=== PATIENT | female | born 1950 | race Caucasian/White ===

== ENCOUNTER → 2018-08-01 | Outpatient (CLI) | payer MEDICARE, OTHER ==
[~2018-08-01] MED LIST: ASPIRIN81 M2 PO; B-COMPLEX WITH1 EAC2 PO; CARAFATE 1 GM TA1 G1 GT; CYMBALTA30 MG PO; CYMBALTA60 MG PO; FLEXERIL PO; HYDROCODON-ACE1 EACH PO; HYDROCODONE-AP1 EAC6 PO; MELATONIN3 MG PO; NORCO 5-325 TA1 EACH PO; OMEPRAZOLE40 MG PO; PROBIOTIC1 EAC1 PO; PROZAC20 MG PO; REGLAN 10 MG TA10 MG PO; UNICOMPLEX M TA1 TA1 PO; VITAMIN D3400 UNI2 PO; ZOFRAN ODT4 MG PO
== END ==
LOC: M.RAD 14:22
DX: M85.89 Other specified disorders of bone density and structure, multiple sites (principal); M81.0 Age-related osteoporosis without current pathological fracture

== ENCOUNTER → 2020-04-04 | Outpatient (CLI) | payer MEDICARE, OTHER | LOC: M.NUC 10:01 | PROVIDERS: ATTEND Orthopaedic Surgery | DX: S83.232A Complex tear of medial meniscus, current injury, left knee, initial encounter (principal); M17.0 Bilateral primary osteoarthritis of knee; X58.XXXA Exposure to other specified factors, initial encounter; Y92.89 Other specified places as the place of occurrence of the external cause; Y93.89 Activity, other specified; Y99.8 Other external cause status ==

== ENCOUNTER 2020-06-28 09:59 | Emergency (ER) | payer MEDICARE, OTHER ==
[~2020-06-28] VITALS: Ht 160 cm; Wt 101.6 kg
[2020-06-28] MEDS ORDERED: ZOFRAN4 MG PO (10:09)
[2020-06-28] MEDS ORDERED: FAMOTIDINE 40 M40 M1 PO (10:09)
[2020-06-28] MEDS ORDERED: DEXTROAMPHETAMIN5 M2 PO (10:09)
[2020-06-28] MEDS ORDERED: ALPRAZOLAM XR3 MG PO (10:10)
[2020-06-28] MEDS ORDERED: BACTRIM DS TAB1 EAC1 PO (10:10)
[2020-06-28 10:38] LABS: ABSOLUTE EOSINOPHILS 0.2 thou/uL (0.0-0.7); ABSOLUTE LYMPHOCYTES 0.9 thou/uL (0.8-5.3); ABSOLUTE MONOCYTES 0.3 thou/uL (0.0-1.2); ABSOLUTE NEUTROPHILS 3.7 thou/uL (1.6-8.1); BASOPHILS 0.6 %; EOSINOPHILS 4.4 %; HEMATOCRIT 40.1 % (37.0-47.0); HEMOGLOBIN 13.4 gm/dL (12.0-15.0); LYMPHOCYTES 17.9 %; MCH 29.6 pg (26.0-34.0); MCHC 33.4 g/dL (28.0-37.0); MCV 88.7 fL (80.0-100.0); MONOCYTES 5.1 %; MPV 8.9 fl. (7.2-11.1); NUCLEATED RBCS 0 /100WBC; PLATELET COUNT* 188 thou/uL (150-400); RBC 4.52 mil/uL (4.20-5.00); RDW-CV 15.9 % (10.5-14.5); WBC 5.2 thou/uL (4.0-11.0)
[2020-06-28 10:46] LABS: CALCIUM 9.2 mg/dL (8.5-10.1); CREATININE 1.3 mg/dL (0.6-1.3); POTASSIUM 4.6 mmol/L (3.5-5.1)
[2020-06-28 10:57] LABS: ALBUMIN 3.2 g/dL (3.4-5.0); TOTAL BILIRUBIN 0.3 mg/dL (<0.1-1.0); TOTAL PROTEIN 6.6 g/dL (6.4-8.2)
[2020-06-28 11:41] LABS: URINE BILIRUBIN NEGATIVE (Negative); URINE BLOOD NEGATIVE (Negative); URINE CLARITY CLEAR; URINE COLOR YELLOW; URINE GLUCOSE-RANDOM NEGATIVE (Negative); URINE KETONES NEGATIVE (Negative); URINE LEUKOCYTES NEGATIVE (Negative); URINE NITRITE NEGATIVE (Negative); URINE PROTEIN NEGATIVE (Negative); URINE SPECIFIC GRAVITY <= 1.005 (1.005-1.030); URINE UROBILINOGEN 0.2 E.U./dl (0.2-1.0)
[2020-06-28 11:46] LABS: ESR (SEDRATE) 7 mm/hr (0-30)
[2020-06-28] MEDS ORDERED: PREDNISONE 20 M20 M1 PO (12:18)
[2020-06-28] MEDS ORDERED: BENADRYL25 MG PO (12:18)
[2020-06-28] MEDS ORDERED: ULTRAM 50MG TAB50 MG PO (12:18)
[2020-06-28 12:35] VITALS: BP 149/71
--- NOTE | 2020-06-29 12:47 | EKG ---
[place] [address] ELECTROCARDIOGRAM REPORT Name: CHRIS DA SILVA Room: [facility]#: [id number] Admission: 06/28/20 Attend Phys: Discharge: 06/28/20 Date of : 50 Date of Service: 06/28/20 1049 Report #: [id number] THIS REPORT FOR: //name// [facility] ED Test Date: 2020-06-28 Test Time: 10:49:51 Pat Name: CHRIS DA SILVA Department: Room: Gender: Grab Jack Man: SHRADDHA : 1950 Requested By: Keith Saldana Order Number: [id number] MD: Zenon Richardson Measurements Intervals [place] Rate: 74 P: 49 MO: 170 QRS: -27 QRSD: 106 T: 22 QT: 400 QTc: 444 Interpretive Statements Sinus rhythm Probable left atrial enlargement Low voltage, precordial leads Abnormal R-wave progression, early transition Left ventricular hypertrophy Baseline wander in lead(s) III Compared to ECG 01/22/2014 17:32:44 Low QRS voltage now present Left ventricular hypertrophy now present Repeat Electronically Signed On 06-29-2020 12:47:38 [employer] by Zenon Richardson [email or web address] <ELECTRONICALLY SIGNED> By: Jan Richardson MD, [facility] 06/29/20 1247 1049 1049 Jan Richardson MD, [facility] /EPI
== END 2020-06-28 12:35 | disposition home or self-care (01) ==
LOC: M.ERS 09:59
PROVIDERS: Emergency Medicine
DX: R21 Rash and other nonspecific skin eruption (principal); L52 Erythema nodosum; Z79.899 Other long term (current) drug therapy; Z88.1 Allergy status to other antibiotic agents; Z88.8 Allergy status to other drugs, medicaments and biological substances; Z20.828 Contact with and (suspected) exposure to other viral communicable diseases

== ENCOUNTER → 2020-12-04 | Outpatient (CLI) | payer OTHER ==
[~2020-12-04] MED LIST changes: +ALPRAZOLAM XR3 MG PO; +BACTRIM DS TAB1 EAC1 PO; +BENADRYL25 MG PO; +DEXTROAMPHETAMIN5 M2 PO; +FAMOTIDINE 40 M40 M1 PO; +PREDNISONE 20 M20 M1 PO; +ULTRAM 50MG TAB50 MG PO; +ZOFRAN4 MG PO
[2020-12-04 13:54] LABS: HEMATOCRIT 37.3 % (37.0-47.0); HEMOGLOBIN 12.8 gm/dL (12.0-15.0)
[2020-12-04 13:59] LABS: ALBUMIN 3.3 g/dL (3.4-5.0); CALCIUM 8.4 mg/dL (8.5-10.1); MAGNESIUM 1.9 mg/dL (1.8-2.4)
[2020-12-04 14:12] LABS: INR 0.9; PROTIME 9.9 Seconds (9.20-11.50)
[2020-12-04 14:18] LABS: CALCIUM 8.4 mg/dL (8.5-10.1); CREATININE 1.1 mg/dL (0.6-1.3); PHOSPHORUS* 3.4 mg/dL (2.5-4.9)
[2020-12-05 03:06] LABS: GLYCOHEMOGLOBIN (HGB A1C) 5.5 % (4.8-5.6)
== END ==
LOC: M.LAB 13:04
DX: E53.8 Deficiency of other specified B group vitamins (principal); R73.9 Hyperglycemia, unspecified; E61.1 Iron deficiency; E44.0 Moderate protein-calorie malnutrition; E21.2 Other hyperparathyroidism; E55.9 Vitamin D deficiency, unspecified; Z98.84 Bariatric surgery status